=== PATIENT | male | born 1970 | race Caucasian/White ===

== ENCOUNTER → 2019-12-23 | Outpatient (CLI) | payer OTHER ==
[~2019-12-23] MED LIST: BENAZAPRIL; CIPROFLOXACIN500 M1 PO; FLOMAX0.4 MG PO; PERCOCET 5-3251 EACH PO; PERCOCET PO; SIMVASTATIN40 MG PO; ZOFRAN4 MG PO
== END ==
LOC: M.LAB 16:16
PROVIDERS: ATTEND Internal Medicine Gastroenterology
DX: Z01.812 Encounter for preprocedural laboratory examination (principal); Z20.828 Contact with and (suspected) exposure to other viral communicable diseases; Z12.11 Encounter for screening for malignant neoplasm of colon

== ENCOUNTER → 2021-02-07 | Outpatient (CLI) | payer OTHER | LOC: M.CT 08:59 | PROVIDERS: ATTEND Nurse Practitioner Family | DX: Z13.6 Encounter for screening for cardiovascular disorders (principal); I25.10 Atherosclerotic heart disease of native coronary artery without angina pectoris ==